=== PATIENT | female | born 1990 | race African-American/Black ===

== ENCOUNTER 2017-12-25 12:33 | Emergency (ER) | payer OTHER ==
[2017-12-25] MEDS: DIPHENHYDRAMINE 50 MG INJ IV (15:00)
[2017-12-25] MEDS: ONDANSETRON 4 MG INJ IV (15:00)
[2017-12-25] MEDS: SOD CHLORIDE 0.9% 1,000 ML IV (15:01)
[2017-12-25 15:07] LABS: ADD UMIC YES; UR ASCORBIC ACID 20 mg/dL (NEGATIVE); UR BACTERIA FEW /HPF (NONE SEEN); UR BILIRUBIN (Dip) NEGATIVE (NEGATIVE); UR BLOOD (Dip) 2+ mg/dL (NEGATIVE); UR CLARITY CLEAR (CLEAR); UR COLOR YELLOW (YELLOW); UR GLUCOSE (Dip) NEGATIVE (NEGATIVE); UR KETONES (Dip) TRACE mg/dL (NEGATIVE); UR LEUKOCYTE ESTERASE (Dip) NEGATIVE Leu/ul (NEGATIVE); UR MUCUS FEW /HPF (NONE SEEN); UR NITRITE (Dip) NEGATIVE (NEGATIVE); UR RBC 37 /HPF (0-5); UR SPECIFIC GRAVITY (Dip) 1.019 (1.003-1.030); UR SQUAMOUS EPITHELIAL CELL FEW /HPF (FEW); UR TOTAL PROTEIN (Dip) NEGATIVE (NEGATIVE); UR UROBILINOGEN (Dip) NEGATIVE (NEGATIVE); UR WBC 3 /HPF (0-5)
[2017-12-25 15:20] LABS: ADD MAN DIFF? NO
[2017-12-25 15:27] LABS: WHITE BLOOD COUNT 6.7 10^3/ul (4.8-10.8)
[2017-12-25 15:27] LABS: BASOPHILS % 0.2 % (0.0-2.0); EOSINOPHILS % 0.5 % (0.0-7.0); HEMATOCRIT 37.9 % (37.0-47.0); HEMOGLOBIN 12.4 g/dl (12.0-16.0); LYMPHOCYTES # 2.1 10^3/ul (0.8-2.9); LYMPHOCYTES % 31.4 % (15.0-51.0); MEAN CORPUSCULAR HEMOGLOBIN 26.4 pg (29.0-33.0); MEAN CORPUSCULAR HGB CONC 32.7 g/dl (32.0-37.0); MEAN CORPUSCULAR VOLUME 80.6 fl (82.0-101.0); MEAN PLATELET VOLUME 9.2 fl (7.4-10.4); MONOCYTE # 0.5 10^3/ul (0.3-0.9); MONOCYTES % 7.8 % (0.0-11.0); NEUTROPHILS % 59.6 % (39.0-77.0); PLATELET COUNT 371 10^3/UL (140-415); RED CELL DISTRIBUTION WIDTH 13.9 % (11.5-14.5)
[2017-12-25 15:46] LABS: ALANINE AMINOTRANSFERASE 23 IU/L (13-69); ALBUMIN 4.2 g/dl (3.3-4.9); ALBUMIN/GLOBULIN RATIO 1.05; ALKALINE PHOSPHATASE 66 IU/L (42-121); ANION GAP 15 (8-16); ASPARTATE AMINO TRANSFERASE 20 IU/L (15-46); BILIRUBIN,INDIRECT 0.2 mg/dl (0-1.1); BILIRUBIN,TOTAL 0.2 mg/dl (0.2-1.3); BLOOD UREA NITROGEN 5 mg/dl (7-20); CALCIUM 9.7 mg/dl (8.4-10.2); CARBON DIOXIDE 25 mmol/L (21-31); CHLORIDE 103 mmol/L (97-110); CREATININE 0.54 mg/dl (0.44-1.00); GLUCOSE 102 mg/dl (70-220); POTASSIUM 3.6 mmol/L (3.5-5.1); SODIUM 139 mmol/L (135-144); TOTAL PROTEIN 8.2 g/dl (6.1-8.1)
[2017-12-25 15:58] LABS: TROPONIN-I < 0.012 ng/ml (0.00-0.12)
== END 2017-12-25 17:41 | disposition home or self-care (01) ==
LOC: FTE 12:33
DX: O99.89 Other specified diseases and conditions complicating pregnancy, childbirth and the puerperium (principal); R51 Headache; R55 Syncope and collapse; O21.9 Vomiting of pregnancy, unspecified; R19.7 Diarrhea, unspecified; R42 Dizziness and giddiness; Z3A.14 14 weeks gestation of pregnancy
CPT/HCPCS: 36415; 76801; 80053; 81001; 84484; 84702; 85025; 86900; 86901; 93005; 96374; 96375; 99285-25

== ENCOUNTER 2018-02-21 22:16 | Emergency (ER) | payer OTHER ==
[2018-02-21] MEDS: SOD CHLORIDE 0.9% 1,000 ML IV (23:14)
[2018-02-21] MEDS: ACETAMINOPHEN 500 MG TAB PO (23:14)
== END 2018-02-22 00:35 | disposition home or self-care (01) ==
LOC: FTE 02-22 00:35
DX: O99.89 Other specified diseases and conditions complicating pregnancy, childbirth and the puerperium (principal); R51 Headache; Z3A.22 22 weeks gestation of pregnancy
CPT/HCPCS: 99284-25; J7030

== ENCOUNTER 2018-03-09 08:18 | Outpatient (CLI) | payer OTHER ==
[2018-03-09 09:14] LABS: ADD UMIC YES; UR ASCORBIC ACID NEGATIVE (NEGATIVE); UR BACTERIA FEW /HPF (NONE SEEN); UR BILIRUBIN (Dip) NEGATIVE (NEGATIVE); UR BLOOD (Dip) 1+ mg/dL (NEGATIVE); UR CLARITY SLIGHTLY CLOUDY (CLEAR); UR COLOR YELLOW (YELLOW); UR GLUCOSE (Dip) NEGATIVE (NEGATIVE); UR KETONES (Dip) TRACE mg/dL (NEGATIVE); UR LEUKOCYTE ESTERASE (Dip) NEGATIVE Leu/ul (NEGATIVE); UR MUCUS MANY /HPF (NONE SEEN); UR NITRITE (Dip) POSITIVE (NEGATIVE); UR RBC 47 /HPF (0-5); UR SPECIFIC GRAVITY (Dip) 1.019 (1.003-1.030); UR SQUAMOUS EPITHELIAL CELL FEW /HPF (FEW); UR TOTAL PROTEIN (Dip) NEGATIVE (NEGATIVE); UR UROBILINOGEN (Dip) NEGATIVE (NEGATIVE); UR WBC 10 /HPF (0-5)
[2018-03-09] MEDS: DEXTROSE 5%-0.45% NACL 1,000 ML IV ×2 (10:13→15:17)
[2018-03-09 10:31] LABS: ADD MAN DIFF? NO
[2018-03-09 10:33] LABS: WHITE BLOOD COUNT 7.8 10^3/ul (4.8-10.8)
[2018-03-09 10:33] LABS: BASOPHILS % 0.1 % (0.0-2.0); EOSINOPHILS % 0.4 % (0.0-7.0); HEMATOCRIT 37.1 % (37.0-47.0); HEMOGLOBIN 11.6 g/dl (12.0-16.0); LYMPHOCYTES # 1.7 10^3/ul (0.8-2.9); LYMPHOCYTES % 22.2 % (15.0-51.0); MEAN CORPUSCULAR HEMOGLOBIN 24.9 pg (29.0-33.0); MEAN CORPUSCULAR HGB CONC 31.3 g/dl (32.0-37.0); MEAN CORPUSCULAR VOLUME 79.8 fl (82.0-101.0); MEAN PLATELET VOLUME 9.4 fl (7.4-10.4); MONOCYTE # 0.7 10^3/ul (0.3-0.9); MONOCYTES % 8.3 % (0.0-11.0); NEUTROPHIL # 5.3 10^3/ul (1.6-7.5); NEUTROPHILS % 68.4 % (39.0-77.0); PLATELET COUNT 340 10^3/UL (140-415); RED BLOOD COUNT 4.65 10^6/ul (4.20-5.40); RED CELL DISTRIBUTION WIDTH 13.3 % (11.5-14.5)
[2018-03-09 10:49] LABS: ALANINE AMINOTRANSFERASE 18 IU/L (13-69); ALBUMIN 3.6 g/dl (3.3-4.9); ALKALINE PHOSPHATASE 90 IU/L (42-121); ANION GAP 11 (8-16); ASPARTATE AMINO TRANSFERASE 18 IU/L (15-46); BILIRUBIN,INDIRECT 0.3 mg/dl (0-1.1); BILIRUBIN,TOTAL 0.3 mg/dl (0.2-1.3); BLOOD UREA NITROGEN 4 mg/dl (7-20); CALCIUM 9.4 mg/dl (8.4-10.2); CARBON DIOXIDE 26 mmol/L (21-31); CHLORIDE 108 mmol/L (97-110); CREATININE 0.57 mg/dl (0.44-1.00); GLUCOSE 84 mg/dl (70-220); POTASSIUM 3.6 mmol/L (3.5-5.1); SODIUM 141 mmol/L (135-144); TOTAL PROTEIN 7.2 g/dl (6.1-8.1)
[2018-03-09] MEDS: ONDANSETRON 4 MG INJ IV (15:08)
== END 2018-03-09 18:40 | disposition home or self-care (01) ==
LOC: OBT 08:18 → L-D 08:19 → OBT 18:40
DX: O21.2 Late vomiting of pregnancy (principal); O26.892 Other specified pregnancy related conditions, second trimester; R53.1 Weakness; Z3A.24 24 weeks gestation of pregnancy
CPT/HCPCS: 36415; 76817; 76818; 80053; 81001; 85025; 87086; 96360; 96361

== ENCOUNTER 2018-06-02 11:55 | Inpatient (IN) | payer OTHER ==
[2018-06-02] MEDS: DEXTROSE 5%-LR 1,000 ML IV ×2 (12:43→16:27)
[2018-06-02 12:56] LABS: ADD MAN DIFF? NO
[2018-06-02 13:02] LABS: WHITE BLOOD COUNT 7.3 10^3/ul (4.8-10.8)
[2018-06-02 13:02] LABS: BASOPHILS % 0.1 % (0.0-2.0); EOSINOPHILS % 0.4 % (0.0-7.0); HEMATOCRIT 34.6 % (37.0-47.0); HEMOGLOBIN 10.4 g/dl (12.0-16.0); LYMPHOCYTES # 1.5 10^3/ul (0.8-2.9); LYMPHOCYTES % 21.2 % (15.0-51.0); MEAN CORPUSCULAR HEMOGLOBIN 22.5 pg (29.0-33.0); MEAN CORPUSCULAR HGB CONC 30.1 g/dl (32.0-37.0); MEAN CORPUSCULAR VOLUME 74.9 fl (82.0-101.0); MEAN PLATELET VOLUME 8.9 fl (7.4-10.4); MONOCYTE # 0.6 10^3/ul (0.3-0.9); MONOCYTES % 7.9 % (0.0-11.0); NEUTROPHILS % 68.9 % (39.0-77.0); PLATELET COUNT 349 10^3/UL (140-415); RED BLOOD COUNT 4.62 10^6/ul (4.20-5.40); RED CELL DISTRIBUTION WIDTH 15.7 % (11.5-14.5)
[2018-06-02 13:11] LABS: ADD UMIC YES; UR ASCORBIC ACID NEGATIVE (NEGATIVE); UR BACTERIA FEW /HPF (NONE SEEN); UR BILIRUBIN (Dip) NEGATIVE (NEGATIVE); UR BLOOD (Dip) NEGATIVE (NEGATIVE); UR CLARITY SLIGHTLY CLOUDY (CLEAR); UR COLOR YELLOW (YELLOW); UR GLUCOSE (Dip) NEGATIVE (NEGATIVE); UR KETONES (Dip) 1+ mg/dL (NEGATIVE); UR LEUKOCYTE ESTERASE (Dip) NEGATIVE Leu/ul (NEGATIVE); UR MUCUS MANY /HPF (NONE SEEN); UR NITRITE (Dip) NEGATIVE (NEGATIVE); UR RBC 11 /HPF (0-5); UR SPECIFIC GRAVITY (Dip) 1.017 (1.003-1.030); UR SQUAMOUS EPITHELIAL CELL FEW /HPF (FEW); UR TOTAL PROTEIN (Dip) 1+ mg/dl (NEGATIVE); UR UROBILINOGEN (Dip) NEGATIVE (NEGATIVE); UR WBC 4 /HPF (0-5)
[2018-06-02 13:51] LABS: ALANINE AMINOTRANSFERASE 11 IU/L (13-69); ALBUMIN 3.5 g/dl (3.3-4.9); ALBUMIN/GLOBULIN RATIO 0.94; ALKALINE PHOSPHATASE 241 IU/L (42-121); ANION GAP 9 (8-16); ASPARTATE AMINO TRANSFERASE 20 IU/L (15-46); BILIRUBIN,INDIRECT 0.4 mg/dl (0-1.1); BILIRUBIN,TOTAL 0.4 mg/dl (0.2-1.3); BLOOD UREA NITROGEN 5 mg/dl (7-20); CALCIUM 8.9 mg/dl (8.4-10.2); CARBON DIOXIDE 23 mmol/L (21-31); CHLORIDE 109 mmol/L (97-110); CREATININE 0.66 mg/dl (0.44-1.00); GLUCOSE 108 mg/dl (70-220); POTASSIUM 3.4 mmol/L (3.5-5.1); SODIUM 138 mmol/L (135-144); TOTAL PROTEIN 7.2 g/dl (6.1-8.1)
[2018-06-02] MEDS: BETAMET NA PHOS/AC(6 MG/ML) 5ML INJ IM (17:49)
[2018-06-03] MEDS: DEXTROSE 5%-LR 1,000 ML IV ×3 (00:38→18:10)
[2018-06-03 17:39] LABS: COLLECTION PERIOD 24 hrs
[2018-06-03 18:29] LABS: VOLUME 1900 mls
[2018-06-03 18:30] LABS: CREATININE 0.47 mg/dl (0.44-1.00)
[2018-06-03 18:32] LABS: COLLECTION PERIOD 24 hrs; SCRET 0.47 mg/dl (0.44-1.00)
[2018-06-03 18:33] LABS: CREATININE CLEARANCE 224.4 mls/min (84.0-162.0); CREATININE,URINE RANDOM 79.93 mg/dl (20-320); VOLUME 1900 ml/24hrs
[2018-06-03] MEDS: BETAMET NA PHOS/AC(6 MG/ML) 5ML INJ IM (19:35)
== END 2018-06-03 20:07 | disposition home or self-care (01) | DRG 782 ==
LOC: OBT 11:55 → L-D 11:56 → OBT 15:50 → L-D 15:50
DX: O13.3 Gestational [pregnancy-induced] hypertension without significant proteinuria, third trimester (principal); Z3A.36 36 weeks gestation of pregnancy; R51 Headache
CPT/HCPCS: 36415; 76818; 80053; 81001; 82565; 82575; 84156; 84560; 85025; 87086; 96360; 96361

== ENCOUNTER 2018-06-09 17:52 | Inpatient (IN) | payer OTHER ==
[2018-06-09] MEDS: DEXTROSE 5%-LR 1,000 ML IV (20:00)
[2018-06-10] MEDS: DEXTROSE 5%-LR 1,000 ML IV ×5 (03:34→19:05)
[2018-06-10] MEDS: PRENATAL VITAMIN PO (08:55)
[2018-06-10] MEDS: AL HYDROX/MG HYDROX/SIMETH 30 ML CUP PO (21:58)
[2018-06-10 22:42] LABS: ADD MAN DIFF? NO
[2018-06-10 22:44] LABS: WHITE BLOOD COUNT 9.3 10^3/ul (4.8-10.8)
[2018-06-10 22:44] LABS: BASOPHILS % 0.2 % (0.0-2.0); EOSINOPHILS % 0.4 % (0.0-7.0); HEMATOCRIT 31.5 % (37.0-47.0); HEMOGLOBIN 9.4 g/dl (12.0-16.0); LYMPHOCYTES # 1.7 10^3/ul (0.8-2.9); LYMPHOCYTES % 17.9 % (15.0-51.0); MEAN CORPUSCULAR HEMOGLOBIN 22.4 pg (29.0-33.0); MEAN CORPUSCULAR HGB CONC 29.8 g/dl (32.0-37.0); MEAN CORPUSCULAR VOLUME 75.2 fl (82.0-101.0); MEAN PLATELET VOLUME 9.3 fl (7.4-10.4); MONOCYTE # 0.9 10^3/ul (0.3-0.9); MONOCYTES % 9.7 % (0.0-11.0); NEUTROPHIL # 6.5 10^3/ul (1.6-7.5); NEUTROPHILS % 69.9 % (39.0-77.0); PLATELET COUNT 289 10^3/UL (140-415); RED BLOOD COUNT 4.19 10^6/ul (4.20-5.40); RED CELL DISTRIBUTION WIDTH 16.1 % (11.5-14.5)
[2018-06-10 23:06] LABS: ALANINE AMINOTRANSFERASE 16 IU/L (13-69); ALBUMIN 3.1 g/dl (3.3-4.9); ALBUMIN/GLOBULIN RATIO 0.88; ALKALINE PHOSPHATASE 219 IU/L (42-121); ANION GAP 9 (8-16); ASPARTATE AMINO TRANSFERASE 15 IU/L (15-46); BILIRUBIN,INDIRECT 0.3 mg/dl (0-1.1); BILIRUBIN,TOTAL 0.3 mg/dl (0.2-1.3); BLOOD UREA NITROGEN 6 mg/dl (7-20); CALCIUM 8.9 mg/dl (8.4-10.2); CARBON DIOXIDE 21 mmol/L (21-31); CHLORIDE 107 mmol/L (97-110); CREATININE 0.54 mg/dl (0.44-1.00); GLUCOSE 104 mg/dl (70-220); SODIUM 133 mmol/L (135-144); TOTAL PROTEIN 6.6 g/dl (6.1-8.1)
[2018-06-11] MEDS: DEXTROSE 5%-LR 1,000 ML IV ×3 (01:46→16:53)
[2018-06-11 03:00] LABS: ADD UMIC NO; UR ASCORBIC ACID NEGATIVE (NEGATIVE); UR BILIRUBIN (Dip) NEGATIVE (NEGATIVE); UR BLOOD (Dip) NEGATIVE (NEGATIVE); UR CLARITY CLEAR (CLEAR); UR COLOR STRAW (YELLOW); UR GLUCOSE (Dip) NEGATIVE (NEGATIVE); UR KETONES (Dip) NEGATIVE (NEGATIVE); UR LEUKOCYTE ESTERASE (Dip) NEGATIVE Leu/ul (NEGATIVE); UR NITRITE (Dip) NEGATIVE (NEGATIVE); UR SPECIFIC GRAVITY (Dip) 1.011 (1.003-1.030); UR TOTAL PROTEIN (Dip) NEGATIVE (NEGATIVE); UR UROBILINOGEN (Dip) NEGATIVE (NEGATIVE)
[2018-06-11] MEDS: FAMOTIDINE 20 MG INJ IV ×2 (08:48→23:06)
[2018-06-11] MEDS: PRENATAL VITAMIN PO (09:00)
[2018-06-12] MEDS: DEXTROSE 5%-LR 1,000 ML IV ×2 (00:45→08:01)
[2018-06-12] MEDS ORDERED: OXYTOCIN 30 UNITS/LR 500 ML BAG IV (07:00)
[2018-06-12] MEDS: PRENATAL VITAMIN PO (09:00)
[2018-06-12] MEDS ORDERED: MISOPROSTOL 200 MCG TAB PR ×2 (11:30→19:00)
[2018-06-12] MEDS ORDERED: OXYTOCIN 30 UNITS/LR 500 ML IV ×2 (11:30→19:00)
[2018-06-12] MEDS ORDERED: CARBOPROST 250 MCG INJ IM ×2 (11:30→19:00)
[2018-06-12] MEDS ORDERED: METHYLERGONOVINE 0.2 MG INJ IM ×2 (11:30→19:00)
[2018-06-12] MEDS: LACTATED RINGER'S 1,000 ML IV ×2 (11:48→18:42)
[2018-06-12 12:12] LABS: ADD MAN DIFF? NO
[2018-06-12 12:14] LABS: WHITE BLOOD COUNT 10.7 10^3/ul (4.8-10.8)
[2018-06-12 12:14] LABS: BASOPHILS % 0.1 % (0.0-2.0); EOSINOPHILS % 0.4 % (0.0-7.0); HEMATOCRIT 31.6 % (37.0-47.0); HEMOGLOBIN 9.4 g/dl (12.0-16.0); LYMPHOCYTES # 2.2 10^3/ul (0.8-2.9); LYMPHOCYTES % 20.9 % (15.0-51.0); MEAN CORPUSCULAR HGB CONC 29.7 g/dl (32.0-37.0); MEAN PLATELET VOLUME 9.1 fl (7.4-10.4); MONOCYTES % 9.5 % (0.0-11.0); NEUTROPHIL # 7.2 10^3/ul (1.6-7.5); NEUTROPHILS % 66.8 % (39.0-77.0); PLATELET COUNT 325 10^3/UL (140-415); RED BLOOD COUNT 4.27 10^6/ul (4.20-5.40); RED CELL DISTRIBUTION WIDTH 16.8 % (11.5-14.5)
[2018-06-12 12:36] LABS: INR 0.96; PARTIAL THROMBOPLASTIN TIME 27.9 Sec (25.0-35.0); PROTIME 12.9 Sec (11.9-14.9)
[2018-06-12 13:08] LABS: HEPATITIS B SURFACE ANTIGEN NEGATIVE (NEGATIVE)
[2018-06-12] MEDS ORDERED: OXYTOCIN 10 UNIT INJ (14:11)
[2018-06-12] MEDS ORDERED: ONDANSETRON 4 MG INJ (14:11)
[2018-06-12] MEDS ORDERED: morphine SULFATE/PF (10 MG/10 ML) INJ (14:11)
[2018-06-12] MEDS ORDERED: PHENYLephrine (100 MCG/ML) 5ML SYG ×2 (14:11→14:54)
[2018-06-12] MEDS ORDERED: BUPIVACAINE 0.75%/DEXT (SPINAL) 2 ML INJ (14:11)
[2018-06-12] MEDS: CEFAZOLIN 2 GM/50 ML (PMX) 50 ML IV ×2 (15:06→21:22)
[2018-06-12] MEDS ORDERED: NALOXONE (0.4 MG/ML) INJ IV (16:00)
[2018-06-12] MEDS ORDERED: ONDANSETRON 4 MG INJ IV (16:00)
[2018-06-12] MEDS ORDERED: DIPHENHYDRAMINE 50 MG INJ IV (16:00)
[2018-06-12] MEDS: OXYTOCIN 30 UNITS/LR 500 ML IV (16:49)
[2018-06-12] MEDS: KETOROLAC 30 MG INJ IV (16:50)
[2018-06-12] MEDS ORDERED: NA PHOSPHATE/BIPHOS 133 ML ENEMA PR (19:00)
[2018-06-12 19:09] LABS: RAPID PLASMA REAGIN NONREACTIVE (NR)
[2018-06-12] MEDS: SENNA/DOCUSATE NA (8.6MG/50MG) TAB PO (21:00)
[2018-06-12] MEDS: morphine 2 MG INJ IV (21:22)
[2018-06-13] MEDS ORDERED: CLINDAMYCIN 300 MG CAP PO
[2018-06-13] MEDS: LACTATED RINGER'S 1,000 ML IV ×3 (03:45→22:27)
[2018-06-13] MEDS: CEFAZOLIN 2 GM/50 ML (PMX) 50 ML IV ×2 (05:27→11:57)
[2018-06-13] MEDS: KETOROLAC 30 MG INJ IV (05:28)
[2018-06-13 08:54] LABS: ADD MAN DIFF? NO
[2018-06-13 08:58] LABS: WHITE BLOOD COUNT 12.3 10^3/ul (4.8-10.8)
[2018-06-13 08:58] LABS: BASOPHILS % 0.1 % (0.0-2.0); EOSINOPHILS % 0.2 % (0.0-7.0); HEMATOCRIT 29.6 % (37.0-47.0); LYMPHOCYTES # 1.5 10^3/ul (0.8-2.9); LYMPHOCYTES % 12.2 % (15.0-51.0); MEAN CORPUSCULAR HEMOGLOBIN 22.7 pg (29.0-33.0); MEAN CORPUSCULAR HGB CONC 30.4 g/dl (32.0-37.0); MEAN CORPUSCULAR VOLUME 74.6 fl (82.0-101.0); MEAN PLATELET VOLUME 9.3 fl (7.4-10.4); MONOCYTE # 0.9 10^3/ul (0.3-0.9); MONOCYTES % 6.9 % (0.0-11.0); NEUTROPHIL # 9.8 10^3/ul (1.6-7.5); NEUTROPHILS % 79.7 % (39.0-77.0); PLATELET COUNT 322 10^3/UL (140-415); RED BLOOD COUNT 3.97 10^6/ul (4.20-5.40); RED CELL DISTRIBUTION WIDTH 16.4 % (11.5-14.5)
[2018-06-13] MEDS: SENNA/DOCUSATE NA (8.6MG/50MG) TAB PO ×2 (09:06→20:53)
[2018-06-13] MEDS: BISACODYL 10 MG SUPP PR (11:57)
[2018-06-13] MEDS: CIPROFLOXACIN 500 MG TAB PO (17:39)
[2018-06-13] MEDS: OXYCODONE/ACETAMINOPHEN (5/325) TAB PO (17:39)
[2018-06-13] MEDS: IBUPROFEN 800 MG TAB PO (22:35)
[2018-06-14] MEDS: HYDROCODONE/APAP (5/325) TAB PO ×2 (00:43→11:57)
[2018-06-14] MEDS: LACTATED RINGER'S 1,000 ML IV (02:42)
[2018-06-14] MEDS: CIPROFLOXACIN 500 MG TAB PO ×2 (05:49→17:59)
[2018-06-14] MEDS: IBUPROFEN 800 MG TAB PO ×3 (05:49→21:28)
[2018-06-14] MEDS: SENNA/DOCUSATE NA (8.6MG/50MG) TAB PO ×2 (08:52→21:28)
[2018-06-14 09:22] LABS: ADD MAN DIFF? NO
[2018-06-14 09:40] LABS: BASOPHILS % 0.1 % (0.0-2.0); EOSINOPHILS # 0.1 10^3/ul (0.0-0.5); EOSINOPHILS % 0.5 % (0.0-7.0); LYMPHOCYTES # 2.2 10^3/ul (0.8-2.9); LYMPHOCYTES % 23.9 % (15.0-51.0); MEAN CORPUSCULAR HEMOGLOBIN 22.3 pg (29.0-33.0); MEAN CORPUSCULAR VOLUME 74.4 fl (82.0-101.0); MEAN PLATELET VOLUME 9.6 fl (7.4-10.4); MONOCYTE # 0.8 10^3/ul (0.3-0.9); MONOCYTES % 9.1 % (0.0-11.0); NEUTROPHIL # 6.1 10^3/ul (1.6-7.5); NEUTROPHILS % 65.4 % (39.0-77.0); PLATELET COUNT 335 10^3/UL (140-415); RED BLOOD COUNT 4.03 10^6/ul (4.20-5.40); RED CELL DISTRIBUTION WIDTH 16.6 % (11.5-14.5)
[2018-06-14 09:40] LABS: WHITE BLOOD COUNT 9.3 10^3/ul (4.8-10.8)
[2018-06-14] MEDS: LANOLIN 7 GM TUBE TOP (11:50)
[2018-06-15] MEDS: IBUPROFEN 800 MG TAB PO (06:24)
[2018-06-15] MEDS: CIPROFLOXACIN 500 MG TAB PO (06:25)
[2018-06-15] MEDS: MEASLES,MUMPS,RUBELLA VACCINE INJ SC* (09:00)
[2018-06-15] MEDS: DIPHTH/TET/ACEL PERTUSS (ADULT) 0.5 ML VIAL IM* (09:00)
[2018-06-15] MEDS: OXYCODONE/ACETAMINOPHEN (5/325) TAB PO (09:11)
[2018-06-15] MEDS: SENNA/DOCUSATE NA (8.6MG/50MG) TAB PO (09:12)
== END 2018-06-15 13:20 | disposition home or self-care (01) | DRG 766 ==
LOC: OBT 17:52 → L-D 17:54 → PP1 06-12 18:26
PROC: 10D00Z1 Extraction of Products of Conception, Low, Open Approach (ICD-10-PCS; principal; 2018-06-12 16:00)
PROC: 3E033VJ Introduction of Other Hormone into Peripheral Vein, Percutaneous Approach (ICD-10-PCS; 2018-06-12 16:00)
DX: O34.211 Maternal care for low transverse scar from previous cesarean delivery (principal); O99.214 Obesity complicating childbirth; E66.01 Morbid (severe) obesity due to excess calories; O76 Abnormality in fetal heart rate and rhythm complicating labor and delivery; Z68.37 Body mass index [BMI] 37.0-37.9, adult; Z3A.38 38 weeks gestation of pregnancy; Z37.0 Single live birth
CPT/HCPCS: 76818; 80053; 81003; 85025; 85610; 85730; 86592; 86850; 86900; 86901; 87340; 96360; 99464

== ENCOUNTER 2018-11-15 18:25 | Emergency (ER) | payer OTHER | END 2018-11-15 20:24 | disposition home or self-care (01) | LOC: FTE 18:25 | DX: J06.9 Acute upper respiratory infection, unspecified (principal) | CPT/HCPCS: 99283; Z7502 ==

== ENCOUNTER 2019-03-05 12:01 | Emergency (ER) | payer OTHER | END 2019-03-05 15:12 | disposition home or self-care (01) | LOC: FTE 12:01 | DX: J02.9 Acute pharyngitis, unspecified (principal) | CPT/HCPCS: 99283; Z7502 ==